=== PATIENT | male | born 1970 | race Asian ===

== ENCOUNTER 2019-01-14 07:00 | Emergency (ER) | payer OTHER ==
[~2019-01-14] VITALS: Ht 177.8 cm; Wt 79.4 kg
[2019-01-14 07:04] VITALS: Ht 177.8 cm; Wt 79.4 kg
[2019-01-14 12:16] VITALS: BP 149/98
== END 2019-01-14 12:44 | disposition home or self-care (01) ==
LOC: ED 07:00
DX: S09.8XXA Other specified injuries of head, initial encounter (principal); R42 Dizziness and giddiness; I10 Essential (primary) hypertension; R25.2 Cramp and spasm; V43.52XA Car driver injured in collision with other type car in traffic accident, initial encounter; Y93.I9 Activity, other involving external motion; Y92.413 State road as the place of occurrence of the external cause; Y99.8 Other external cause status
CPT/HCPCS: J1885